=== PATIENT | male | born 1975 | race Caucasian/White ===

== ENCOUNTER 2019-03-28 21:23 | Emergency (ER) | payer BC ==
[~2019-03-28] VITALS: Ht 172.7 cm; Wt 84.4 kg
[2019-03-28] MEDS ORDERED: myfortic PO (21:48)
[2019-03-28] MEDS ORDERED: PRED2.5T PO (21:48)
[2019-03-28] MEDS ORDERED: eliquis PO (21:48)
[2019-03-28] MEDS ORDERED: FLUC200T8 PO (21:48)
[2019-03-28] MEDS ORDERED: TACR1CAP GT (21:48)
[2019-03-28 22:09] LABS: BASOPHILS % (AUTO) 0.7 % (0.0-2.0); EOSINOPHILS # (AUTO) 0.1 K/uL (0.0-0.7); EOSINOPHILS % (AUTO) 1.5 % (0.0-7.0); HEMATOCRIT 41.4 % (36.7-47.1); HEMOGLOBIN 13.9 g/dL (12.5-16.3); LYMPHOCYTES # (AUTO) 1.3 K/uL (20.0-40.0); LYMPHOCYTES % (AUTO) 21.7 % (20.5-51.5); MEAN CORPUSCULAR HEMOGLOBIN 29.4 uug (23.8-33.4); MEAN CORPUSCULAR HGB CONC 34 g/dL (32.5-36.3); MEAN CORPUSCULAR VOLUME 87.3 fL (73.0-96.2); MONOCYTES # (AUTO) 0.6 K/uL (2.0-10.0); MONOCYTES % (AUTO) 10.2 % (0.0-11.0); NEUTROPHILS # (AUTO) 3.8 K/uL (1.8-8.9); NEUTROPHILS % (AUTO) 65.9 % (38.5-71.5); PLATELET COUNT (AUTO) 195 K/uL (152-348); RED BLOOD CELL COUNT(AUTO) 4.74 MIL/uL (4.06-5.63); WHITE BLOOD COUNT (AUTO) 5.8 K/uL (3.6-10.2)
--- NOTE | 2019-03-28 22:10 | NUR ---
Pt ambulated in ER with stable gait for the c/o abdominal pain and bloating with nausea. Pt is A/O x 4 and speaking in complete sentences. Pt's primary hx kidney transplant and heart surgery (unable to state the kind of surgery) Pt kept NPO, safe environment implemented.
[2019-03-28 22:31] LABS: BILIRUBIN,DIRECT 0.1 mg/dL (0.0-0.2); BILIRUBIN,TOTAL 0.5 mg/dL (0.2-1.0); CREATININE 1.4 mg/dL (0.6-1.3); POTASSIUM 3.2 mmol/L (3.5-5.1); TOTAL PROTEIN, SERUM 7.2 g/dL (6.4-8.2)
[2019-03-28 22:39] LABS: *BILIRUBIN,URIN NEGATIVE (NEGATIVE); *BLOOD, URINE 1+ (NEGATIVE); *CLARITY,URINE CLEAR (CLEAR); *COLOR,URINE YELLOW (YELLOW); *KETONES,URINE NEGATIVE (NEGATIVE); *UROBILINOGEN,URINE 0.2 E.U./dl (NORMAL); LEUKOCYTE ESTERASE ,URINE NEGATIVE (NEGATIVE); NITRITE, URINE NEGATIVE (NEGATIVE); UGLUCOSE NEGATIVE (NEGATIVE)
[2019-03-28 22:41] LABS: ETHANOL < 3 MG/DL (0-0)
[2019-03-28 22:59] LABS: BACTERIA,URINE NONE SEEN /HPF (NONE SEEN)
[2019-03-28 23:00] LABS: MUCUS,URINE FEW /LPF (0-FEW); SQUAMOUS EPITHELIAL CELL,UR FEW /HPF (NONE SEEN)
[2019-03-28] MEDS ORDERED: POTASSIUM CHLORIDE 10 MEQ TAB.PRT.SR PO ONE (23:00)
[2019-03-28] MEDS ORDERED: POTASSIUM CHLORIDE 20 MEQ TAB.PRT.SR ONE (23:11)
[2019-03-28] MEDS ORDERED: HYDROCODONE/APAP 10-325 MG TABLET ONE (23:11)
[2019-03-28] MEDS ORDERED: HYDROCODONE/APAP 10-325 MG TABLET PO ONE (23:15)
--- NOTE | 2019-03-28 23:15 | NUR ---
IV removed. Catheter intact and site benign. Pressure and 4x4 gauze applied to site. No bleeding noted.Patient discharged to home in stable conditon. Written and verbal after care instructions given. Patient verbalizes understanding of instructions. Patient ambulated out of ER with stable gait.
[2019-03-28 23:16] VITALS: BP 117/84
== END 2019-03-28 23:17 | disposition home or self-care (01) ==
LOC: ER 21:23
DX: E87.6 Hypokalemia (principal); R31.9 Hematuria, unspecified; H92.02 Otalgia, left ear; N18.9 Chronic kidney disease, unspecified; G89.29 Other chronic pain; M54.5 Low back pain; Z90.49 Acquired absence of other specified parts of digestive tract; Z88.8 Allergy status to other drugs, medicaments and biological substances; Z79.899 Other long term (current) drug therapy
CPT/HCPCS: 36415; 80048; 80076; 81000; 81001; 83690; 85025; 99283; G0480; A4663